=== PATIENT | female | born 1995 | race Caucasian/White ===

== ENCOUNTER → 2018-11-25 21:37 | Observation (INO) ==
[2018-11-25 20:02] LABS: Bilirubin,Urine Negative (Negative); Blood,Urine Negative (Negative); Clarity,Urine Clear (Clear); Color,Urine Yellow (Yellow); Glucose,Urine (UA) Normal (Normal); Ketones,Urine Negative (Negative); Leukocyte Esterase,Urine Negative (Negative); Nitrite,Urine Negative (Negative); Protein,Urine Negative (Neg-Trace); Specific Gravity,Urine 1.018 (1.010-1.025); Urobilinogen,Urine Normal (Normal)
[2018-11-25 20:12] LABS: Amphetamine Screen,Urine Negative ng/mL (Cutoff=1000); Barbiturate Screen,Urine Negative ng/mL (Cutoff=200); Benzodiazepines Screen,Urine Negative ng/mL (Cutoff=200); Cannabinoid Screen,Urine Negative ng/mL (Cutoff = 50); Cocaine Screen,Urine Negative ng/mL (Cutoff= 300); Opiate Screen,Urine Negative ng/mL (Cutoff=300); Phencyclidine Screen,Urine Negative ng/mL (Cutoff=25)
--- NOTE | 2018-11-25 21:37 | OB/GYN Progress Note ---
Date of Encounter: 11/25/18 Time of Encounter: 21:33 - Assessment and Plan (1) 34 weeks gestation of Current Visit: Yes Status: Acute (2) False labor Current Visit: Yes Status: Acute Pt reports cramping after sex. SVE closed and thick. No contractions on toco. Discharge home with precautions. Subjective - Subjective Interval history: 23 year-old presenting at 34 weeks gestation with c/o contractions. She reports that her belly feels lower and she has been lea every 5-10 minutes all evening. She denies leaking or bleeding. Good FM. She also c/o sharp lower back pains for which she sees a chiropractor. She did have sex prior to the onset of contractions today. Antepartum ROS: movement normal, contractions, no loss of fluid, no vaginal bleeding Objective - Exam FHR: category 1 FHR comments: 135 BPM, reactive NST Auscultation: bilateral: normal Abdomen: Present: soft, gravid Uterus: Present: normal Cervical dilation: closed/thick/high
== END | disposition home or self-care (01) ==
LOC: 1NENULAB
PROVIDERS: ADMIT Registered Nurse; ATTEND Registered Nurse

== ENCOUNTER 2019-01-06 12:40 | Inpatient (IN) ==
[2019-01-06 10:49] LABS: Amphetamine Screen,Urine Negative ng/mL (Cutoff=1000); Barbiturate Screen,Urine Negative ng/mL (Cutoff=200); Benzodiazepines Screen,Urine Negative ng/mL (Cutoff=200); Cannabinoid Screen,Urine Negative ng/mL (Cutoff = 50); Cocaine Screen,Urine Negative ng/mL (Cutoff= 300); Opiate Screen,Urine Negative ng/mL (Cutoff=300); Phencyclidine Screen,Urine Negative ng/mL (Cutoff=25)
[~2019-01-06 12:40] MED LIST: *HR* Nalbuphine 10 MG/ML AMPUL IVP PRN; Famotidine 20 MG/2 ML VIAL IVP PRN; Metoclopramide 10 MG/2 ML VIAL IVP PRN; Naloxone 0.4 MG/ML INJ IVP PRN; Ondansetron 4 MG/2 ML VIAL IVP PRN
[2019-01-06] MEDS ORDERED: Ringers Solution, Lactated 1,000 ML IVC SCH (12:45)
--- NOTE | 2019-01-06 12:54 | OB/GYN History & Physical ---
Date of Encounter: 01/06/19 Time of Encounter: 12:45 Assessment and Plan (1) 40 weeks gestation of Current visit: Yes Status: Acute admitted for IOL Dr. Aguila aware and agrees with POC Cytotec 50mcg PO x1 now Nubain or epidural when desires. History of Present Illness Chief complaint: Contractions, low back pain HPI: Ms. Madera is a 23 year old female at 40w0d gestation presented to labor and delivery with complaints of contractions and low back pain that started this morning around 0300. Patient denies VB or LOF. Patient reports movement that is decreased. Patient is currently dilated and requesting IOL. We discussed shore score and patient agrees to proceed with IOL. IOL discussed with Dr. Aguila the water conservationist physician and she also agrees with POC. Patient receives care with [facility]. Shore score today is 11. Blood type: A+ Rubella: Immune Hep B: Nonreactive GBS: Negative Past Med Surg Social Fam HX - Past Medical History Source: patient Medical history: non-contributory Additional medical history: hypothyroid Psychiatric history: no psych history - Past Surgical History Surgical History: other Additional surgical history: shoulder surgery 2016 - Social History Smoking Status: Never smoker Smokeless Tobacco Status: No Alcohol use: none Drug use: none Occupational status: employed Current living situation: Home - Independent Activity Level: Independent ambulation Recent Out of Country Travel Within the Last 8 Weeks: No Exposure or Possible Exposure to Illness During Travel: No - Family History Mother Family Member Ethnicity: Non- Living Status: Still Living Hx Family Endocrine Disorder: Yes (hypothyroid) Obstetrical History - Pregnancies : 1 Para: 0 Term: 0 : 0 Ab's: 0 Livin Medications and Allergies Levothyroxine [Synthroid] 125 mcg PO DAILY 03/18/16 [History] Pnv No.95/Ferrous Fum/Folic AC [ Caplet] 1 tab PO DAILY 10/22/18 [History] Ferrous Sulfate [Iron] 325 mg PO DAILY 01/06/19 [History] Allergy/AdvReac Type Severity Reaction Status Date / Time No Known Allergies Allergy Verified 01/06/19 09:29 Review of System OB - Constitutional Constitutional ROS IM: no chills, no fever(s), no headache(s) - Cardiovascular Cardiovascular: no chest pain, no lightheadedness, no palpitations, no syncope - Respiratory Respiratory: no cough, no dyspnea - Gastrointestinal Gastrointestinal: abdominal pain, cramping, no constipation, no heartburn, no nausea, no vomiting - Genitourinary Genitourinary: no abnormal vaginal bleeding, no dysuria, no flank pain, no urinary frequency, no urinary urgency, no vaginal odor, no vaginal pruritis Exam - Constitutional Constitutional: well developed, well nourished, no acute distress, average body habitus - HEENT HEENT: Normocephaly, Mucus Membranes Moist - Neck Neck exam: full ROM, supple - Lungs Respiratory exam: CTAB - Cardiovascular Cardiovascular exam: RRR, +S1, +S2 - Abdomen Abdomen: Present: bowel sounds normal, gravid, non tender - Extremities Extremities exam: full ROM, normal inspection Deep Tendon Reflex Grade: 2+ Normal - Cervix Dilation: 3 Effacement: 90 Station: -1 - Uterus Uterus exam: Present: normal size, normal contour - Anus/Rectum Anus/Rectum: Present: normal perianal skin - Comments Comments: FHR 135 bpm moderate variability +15x15 accels no decels noted. Contractions 3-4 min apart Cat. 1 tracing Results All other labs normal. - VTE Reasons for not Prescribing Prophylaxis: Treatment not Indicated - Low risk for VTE
[2019-01-06] MEDS ORDERED: miSOPROStol 25 MCG TABLET PO STA (12:59)
[2019-01-06 14:18] LABS: Basophils % 0.4 %; Eosinophils % 0.4 %; Hematocrit 38.1 % (35.3-44.9); Hemoglobin 12.5 g/dL (11.5-15.4); Immature Granulocytes % 0.6 % (0-4); Lymphocytes # 1.4 K/mcL (0.6-4.6); Mean Corpuscular HGB Conc 32.8 g/dL (31.6-35.5); Mean Corpuscular Hemoglobin 29.1 pg (28.0-33.3); Mean Corpuscular Volume 88.8 fL (83.0-100.0); Mean Platelet Volume 12.8 fL (9.4-12.4); Monocytes # 0.7 K/mcL (0.0-1.3); Monocytes % 6.2 %; Neutrophils # 8.5 K/mcL (1.6-8.9); Platelet Count 134 K/mcL (140-400); Red Blood Count 4.29 M/mcL (3.82-4.97); Red Cell Distribution Width 14.8 % (11.5-14.5); Segmented Neutrophils % 79.4 %; White Blood Count 10.7 K/mcL (4.3-11.1)
--- NOTE | 2019-01-06 17:30 | OB Labor Progress Note ---
Date of Encounter: 01/06/19 Time of Encounter: 17:28 Labor Progress Note - Subjective Subjective: Patient reports contractions are getting stronger. Discussed POC with patient. Patient denies any questions or concerns. - Cervix Cervix: 4/90/-1 - Heart Tones Heart Tones: 135 bpm moderate variability +15x15 accels no decels noted. Cat. 1 tracing - Chisholm Chisholm: 1-4 min apart - Interventions Interventions: SVE, AROM moderate amount of clear fluid. Patient tolerated well. - Plan Physician notified: No Plan: Continue labor management Patient may have Nubain or epidural when desires
[2019-01-06] MEDS ORDERED: Ropivacaine/PF 0.2% 20 ML VIAL EP ONE (17:55)
[2019-01-06] MEDS ORDERED: EPHEDrine 50 MG/ML VIAL IVP PRN (17:55)
[2019-01-06] MEDS ORDERED: *HR* FentaNYL (PF) 100 MCG/2 ML VIAL EP ONE (17:55)
[2019-01-06] MEDS ORDERED: Naloxone 0.4 MG/ML INJ IVP PRN (17:55)
[2019-01-06] MEDS ORDERED: Ondansetron 4 MG/2 ML VIAL IVP PRN (17:55)
[2019-01-06] MEDS ORDERED: Epidural Premix (fent/bupiv) 110 ML EP SCH (18:00)
--- NOTE | 2019-01-06 18:01 | Anesthesia Evaluation PreOp ---
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 History: Denies Any Significant HX Other Medical History: Thyroid (hypothyroidism), Other (mild scoliosis) Anesthesia History: No Prior Anesthetic Complications, Past Anesthesia (Shoulder surgery) : Yes Alcohol Use: none Drug use: none Medications and Allergies Levothyroxine [Synthroid] 125 mcg PO DAILY 03/18/16 [History] Pnv No.95/Ferrous Fum/Folic AC [ Caplet] 1 tab PO DAILY 10/22/18 [History] Ferrous Sulfate [Iron] 325 mg PO DAILY 01/06/19 [History] Allergy/AdvReac Type Severity Reaction Status Date / Time No Known Allergies Allergy Verified 01/06/19 09:29 - Meds/Allergy Pre-op Review Medications Reviewed: Yes Allergies Reviewed: Yes Beta Blockers on Current Med List: No Anesthesia Results - Labs 01/06/19 12:41 Anesthesia Exam BP 110/57 P 82 R 18 T 98.4 Height: 5'2" Weight: 87.6kg NPO (# of Hours): 8hr solids Pain Scale: 6 Pain Scale Used: Numeric (1 - 10) - HEENT Pupil (Motor): Pupils equal Mallampati: II Teeth: Normal Oral Opening: Greater than 3 - GLASS RIBBON MACHINE OPERATOR LOC: Oriented GLASS RIBBON MACHINE OPERATOR Motor: Normal RUE, Normal LUE, Normal RLE, Normal LLE, Normal Face GLASS RIBBON MACHINE OPERATOR Sensory: Normal: RUE, LUE, RLE, LLE, Face - Cardiac Rhythm: Regular Murmur: None JVD: No Carotid Bruit: No - Pulmonary Breath Sounds: bilateral Clear Respiratory Effort: Symmetrical Anesthesia Assess/Plan ASA Score: 2 Level of consciousness: Cooperative, Oriented, Tranquil Anesthetic Plan: Epidural Autologous Blood: No Monitoring Plan: Standard Monitors Recovery Plan: Other
[2019-01-06] MEDS ORDERED: *HR* FentaNYL (PF) 100 MCG/2 ML VIAL ONE (18:06)
--- NOTE | 2019-01-06 18:47 | Anesthesia Procedures ---
Date of Encounter: 01/06/19 Time of Encounter: 16:20 Procedures: Anesthesia - Epidural/Spinal Patient ID/Chart reviewed: Yes Patient examined: Yes OB Eval: Gestational age: 40 OB Eval: : 1 OB Eval: Hx Para: 0 OB Eval: Contractions: Non-stressed pattern Consent Obtained: Yes Supplemental Oxygen: None/Room Air Site Prep: Aseptic Technique, Sterile prep and drape, Povidone-Iodine 1% Patient position: upright Local Anesthetic: Lidocaine 1% Amount of Local Anesthetic used: 3 Touhy Needle Gauge: 18 Touhy Needle Depth (cm): 6 Catheter Depth at Skin (cm): 14 Test Dose (1.5% Lido + Epi): Volume given (mls): 3 Test Dose Result: Negative Loading Dose: Fentanyl (mcg): 100 Loading Dose: Other: Ropivicaine 0.2% 5ml, NS 2ml Loading Dose Administered: Thru Catheter Infusion Med: 0.125% Bupivacaine w/ 2 mcg/ml Fentanyl Infusion Rate (mls/hr): [address]: Tegaderm, Tape Interspace Used: L4-L5 Loss of Resistance (ROEL): Yes Blood: No CSF: No Paresthesia: No Procedure: DALIA placed 2nd pass in upright position, 1st pass patient moved. ROEL achieved with normal saline. Catheter threaded with ease to 14cm at skin. Pt stated comfort with bolus. VSS and FHT stable throughout. Vitals + FHT's: 1820 BP 158/80 P 88 R 18 1842 BP 140/73 P 80 R 16
[2019-01-06] MEDS ORDERED: Oxytocin 20 units/ LR 1000 mL 20 UNIT/1,000 ML BAG IVC SCH (23:15)
--- NOTE | 2019-01-07 02:29 | OB/GYN Procedure Note ---
Delivery - Delivery Date: 01/07/19 Provider: Rosalba Fischer Intrapartum events: prolonged 2nd stage>2.5hr Delivery induction: AROM, oxytocin, misoprostol Delivery monitor: external FHT, external uterine Anesthesia: epidural Quantitated Blood Loss: 100 - Infant (s) Infant A Infant Delivery Date: 01/07/19 Infant Delivery Time: 02:01 Presentation: vertex Position: CESAR Route of delivery: Gender: Female Viability: Viable Pounds: 7 Ounces: 8 Weight Gram: 3400 kg at 1 minute: 9 at 5 mins: 10 Shoulder Dystocia: not encountered Specimens collected: cord blood Placenta: spontaneous Cord: 3 umbilical vessels - Repair Episiotomy: none Laceration Description: Labial (right labial ) - Complications Delivery complications: none - Disposition Mom disposition: stable in LDR Tullos disposition: stable in LDR - Comments Comments: Called to LDR patient complete and +3. Patient placed in stirrups and prepped for vaginal delivery. Under maternal effort patient spontaneously delivered a viable female infant over an intact perineum. No nuchal cord, shoulder dystocia or meconium was encountered. Infant was placed on maternal abdomen cord was clamped and cut after pulsations ceased. Cord blood collected. Placenta delivered spontaneously and visually intact. A small right labial laceration was noted and repaired with 3-0 vicryl. Apgars 9/10. EBL 100. Pericare provided. All counts correct. Both mother and stable in recovery for 2 hour recovery.
[2019-01-07] MEDS ORDERED: *HR* HYDROcodone/Acet 5/325 mg TABLET PO PRN (05:34)
[2019-01-07] MEDS ORDERED: Lanolin 7 G OINT...G. TP PRN (05:34)
[2019-01-07] MEDS ORDERED: Ibuprofen 600 MG TABLET PO PRN (05:34)
[2019-01-07] MEDS ORDERED: Acetaminophen 325 MG TABLET PO PRN (05:34)
[2019-01-07] MEDS ORDERED: Oxytocin 20 units/ LR 1000 mL 20 UNIT/1,000 ML BAG IVC SCH (05:34)
[2019-01-07] MEDS ORDERED: Benzocaine/Menthol 56 GM AEROSOL SPRAY TP PRN (05:34)
[2019-01-07] MEDS: Prenatal Vit/FA 1 EACH TABLET PO SCH (08:36)
[2019-01-08 07:47] VITALS: BP 119/77
--- NOTE | 2019-01-08 08:45 | Discharge Summary ---
Date of Encounter: 01/08/19 Time of Encounter: 08:41 - Discharge Diagnosis (1) Vaginal delivery Priority: Primary Status: Acute Comments: S/P Vaginal Delivery Day 1 Pain is well controlled Lochia is light and without clots VSS Tolerating regular diet and passing flatus Voiding without difficulty Breast feeding well Discharge home today POC per consult with Dr Roach - Discharge Medications Prescriptions: New Breast Pump [BREAST PUMP] 1 each .ROUTE AD #1 each Docusate [Colace] 100 mg PO BID PRN #30 capsule PRN Reason: Constipation Benzocaine/Menthol Rapidan [Dermoplast Rapidan] 1 appl TP QID PRN aerosol PRN Reason: See Comments Lanolin [Lansinoh] 1 appl TP TID PRN oint...g. PRN Reason: Sore Nipples Ibuprofen [Motrin] 600 mg PO Q6HR PRN #30 tablet PRN Reason: Cramping Acetaminophen [Tylenol] 650 mg PO Q6HR PRN tablet PRN Reason: Mild Pain Continued Levothyroxine [Synthroid] 125 mcg PO DAILY Pnv No.95/Ferrous Fum/Folic AC [ Caplet] 1 tab PO DAILY Discontinued Ferrous Sulfate [Iron] 325 mg PO DAILY Home Medications: Levothyroxine [Synthroid] 125 mcg PO DAILY 03/18/16 [History] Pnv No.95/Ferrous Fum/Folic AC [ Caplet] 1 tab PO DAILY 10/22/18 [History] Acetaminophen [Tylenol] 650 mg PO Q6HR PRN tablet 01/08/19 [Rx] Benzocaine/Menthol Rapidan [Dermoplast Rapidan] 1 appl TP QID PRN aerosol 01/08/19 [Rx] Breast Pump [BREAST PUMP] 1 each .ROUTE AD #1 each 01/08/19 [Rx] Docusate [Colace] 100 mg PO BID PRN #30 capsule 01/08/19 [Rx] Ibuprofen [Motrin] 600 mg PO Q6HR PRN #30 tablet 01/08/19 [Rx] Lanolin [Lansinoh] 1 appl TP TID PRN oint...g. 01/08/19 [Rx] Allergies/Adverse Reactions: Allergy/AdvReac Type Severity Reaction Status Date / Time No Known Allergies Allergy Verified 01/06/19 09:29 Data Procedures and tests throughout hospitalization: Laboratory Tests 01/06/19 01/06/19 09:41 12:41 WBC 10.7 RBC 4.29 Hgb 12.5 Hct 38.1 MCV 88.8 MCH 29.1 MCHC 32.8 RDW 14.8 H Plt Count 134 L MPV 12.8 H Immature Gran % 0.6 Seg Neutrophils % 79.4 Lymphocytes % 13.0 Monocytes % 6.2 Eosinophils % 0.4 Basophils % 0.4 Neutrophils # 8.5 Lymphocytes # 1.4 Monocytes # 0.7 Eosinophils # 0.0 Basophils # 0.0 Urine Opiates Screen Negative Ur Buprenorphine Scrn Negative Ur Barbiturates Screen Negative Ur Phencyclidine Scrn Negative Ur Amphetamines Screen Negative U Benzodiazepines Scrn Negative Urine Cocaine Screen Negative U Marijuana (THC) Screen Negative Ur Drug Screen Interp See Below Date of admission: 01/06/19 12:40 Consults: 01/07/19 05:34 Consult to Driver Trainee [CONS] Routine Comment: Vaginal delivery, consult needed Discharging clinician: Neelam Quinones Anticipated date of discharge: 01/08/19 - Patient Status Disposition: Home, Self-Care Condition: Good Functional capacity at discharge: independent ambulation Overall status at discharge: patient is progressing back to baseline - Discharge Instructions Follow Up With: Rosalba Fischer CNM [Non-Partnered Physician] - - Diet and Activity Activity: increase activity as tolerated Diet: regular diet Hospital Course Reason for admission: induction of labor, IUP at term Delivery: Episiotomy: none Laceration: other Other procedures: none complications: none Discharge diagnosis: IUP at term delivered [place] baby: female Time Attestation: Total time spent providing and/or coordinating discharge services: Time Spent: Less than 30 minutes Exam - Constitutional Vitals: Temp Pulse Resp BP Pulse Ox 97.8 F 70 16 119/77 98 01/08/19 07:46 01/08/19 07:46 01/08/19 07:46 01/08/19 07:46 01/07/19 20:00 General appearance IM: cooperative, A&O X 3, pleasant - Respiratory Respiratory exam: Present: CTAB - Cardiovascular Cardiovascular exam IM: Present: RRR, +S1, +S2 - GI/Abdominal GI/Abdominal exam IM: normal bowel sounds, soft - Rectal Rectal exam: deferred - Uterine Tone: Firm Uterus Position: 1 Finger Below Umbilicus, Midline - Extremities Exam Extremities exam IM: Present: normal capillary refill, normal inspection, radial pulses palpable and symmetrical - Neurological Exam Neurological exam: alert, oriented X3
[2019-01-08] MEDS: Prenatal Vit/FA 1 EACH TABLET PO SCH ×2 (09:18→09:55)
== END 2019-01-08 12:06 | disposition home or self-care (01) | DRG 807 ==
LOC: 1NENULAB → 1NENUOBS 01-07 05:26
PROVIDERS: ADMIT Advanced Practice Midwife; ATTEND Advanced Practice Midwife

== ENCOUNTER 2022-03-08 05:56 | Inpatient (IN) ==
[2022-03-08] MEDS ORDERED: *HR* Nalbuphine 10 MG/ML AMPUL IV PRN (06:41)
[2022-03-08] MEDS ORDERED: Naloxone 0.4 MG/ML INJ IVP PRN (06:41)
[2022-03-08] MEDS ORDERED: Metoclopramide 10 MG/2 ML VIAL IVP PRN (06:41)
[2022-03-08] MEDS ORDERED: Azithromycin 500 MG in 0.9 % Sodium Chloride 250 ML IVPB PRN (06:41)
[2022-03-08] MEDS ORDERED: Famotidine 20 MG/2 ML VIAL IVP PRN (06:41)
[2022-03-08] MEDS ORDERED: Ondansetron 4 MG/2 ML VIAL IVP PRN (06:41)
[2022-03-08] MEDS ORDERED: EPHEDrine 50 MG/ML VIAL IVP PRN (07:07)
[2022-03-08 08:13] LABS: Basophils % 0.4 %; Eosinophils # 0.1 K/mcL (0.0-0.6); Eosinophils % 0.7 %; Hematocrit 33.8 % (35.3-44.9); Hemoglobin 11.1 g/dL (11.5-15.4); Immature Granulocytes % 0.6 % (0-4); Lymphocytes # 1.7 K/mcL (0.6-4.6); Lymphocytes % 19.9 %; Mean Corpuscular HGB Conc 32.8 g/dL (31.6-35.5); Mean Corpuscular Hemoglobin 28.8 pg (28.0-33.3); Mean Corpuscular Volume 87.8 fL (83.0-100.0); Mean Platelet Volume 12.1 fL (9.4-12.4); Monocytes # 0.6 K/mcL (0.0-1.3); Monocytes % 7.2 %; Neutrophils # 5.9 K/mcL (1.6-8.9); Platelet Count 146 K/mcL (140-400); Red Blood Count 3.85 M/mcL (3.82-4.97); Red Cell Distribution Width 15.8 % (11.5-14.5); Segmented Neutrophils % 71.2 %; White Blood Count 8.3 K/mcL (4.3-11.1)
[2022-03-08] MEDS ORDERED: miSOPROStoL 25 MCG TABLET VG SCH ×2 (08:46→12:00)
[2022-03-08 10:33] LABS: Amphetamine Screen,Urine Negative ng/mL (Cutoff=1000); Barbiturate Screen,Urine Negative ng/mL (Cutoff=200); Benzodiazepines Screen,Urine Negative ng/mL (Cutoff=200); Cannabinoid Screen,Urine Negative ng/mL (Cutoff = 50); Cocaine Screen,Urine Negative ng/mL (Cutoff= 300); Opiate Screen,Urine Negative ng/mL (Cutoff=300); Phencyclidine Screen,Urine Negative ng/mL (Cutoff=25)
[2022-03-08] MEDS ORDERED: Oxytocin 30 UNIT/503 ML BAG IVC SCH (13:45)
[2022-03-08] MEDS: Ringers Solution, Lactated 1,000 ML IVC SCH ×2 (13:49→17:45)
[2022-03-08] MEDS: Epidural Premix (fent/bupiv) 110 ML EP SCH ×2 (14:32→21:24)
[2022-03-08] MEDS ORDERED: Terbutaline 1 MG/ML VIAL SQ ONE (16:27)
[2022-03-09] MEDS ORDERED: Rho Immune Globulin 1,500 UNIT SYRINGE IM PRN ×2 (05:24→07:30)
[2022-03-09] MEDS ORDERED: Acetaminophen 325 MG TABLET PO SCH (05:24)
[2022-03-09] MEDS ORDERED: Benzocaine/Menthol 56 GM AEROSOL SPRAY TP PRN ×2 (05:24→07:30)
[2022-03-09] MEDS ORDERED: Oxytocin 30 UNIT/503 ML BAG IVC SCH ×2 (05:24→07:30)
[2022-03-09] MEDS ORDERED: Measles/Mumps/Rubella Vacc 0.5 ML VIAL SQ PRN ×2 (05:24→07:30)
[2022-03-09] MEDS ORDERED: Lanolin 7 G OINT...G. TP PRN ×2 (05:24→07:30)
[2022-03-09] MEDS ORDERED: Ondansetron ODT 4 MG TAB.RAPDIS SL PRN ×2 (06:00→07:30)
[2022-03-09] MEDS ORDERED: Ibuprofen 600 MG TABLET PO SCH (06:01)
[2022-03-09] MEDS: Prenatal Vit/FA 1 EACH TABLET PO SCH (08:12)
[2022-03-09] MEDS: Acetaminophen 325 MG TABLET PO SCH ×3 (08:12→22:57)
[2022-03-09] MEDS ORDERED: Prenatal Vit/FA 1 EACH TABLET PO SCH (09:00)
[2022-03-09] MEDS: Ibuprofen 600 MG TABLET PO SCH ×3 (09:52→22:57)
[2022-03-10 04:21] LABS: Basophils % 0.6 %; Eosinophils # 0.1 K/mcL (0.0-0.6); Eosinophils % 1.3 %; Hematocrit 32.9 % (35.3-44.9); Hemoglobin 10.5 g/dL (11.5-15.4); Immature Granulocytes % 0.6 % (0-4); Immature Platelets 9.5 % (1.1-6.1); Lymphocytes # 1.8 K/mcL (0.6-4.6); Lymphocytes % 26.5 %; Mean Corpuscular HGB Conc 31.9 g/dL (31.6-35.5); Mean Corpuscular Hemoglobin 28.6 pg (28.0-33.3); Mean Corpuscular Volume 89.6 fL (83.0-100.0); Mean Platelet Volume 11.5 fL (9.4-12.4); Monocytes # 0.6 K/mcL (0.0-1.3); Monocytes % 8.1 %; Neutrophils # 4.2 K/mcL (1.6-8.9); Platelet Count 128 K/mcL (140-400); Red Blood Count 3.67 M/mcL (3.82-4.97); Red Cell Distribution Width 16.1 % (11.5-14.5); Segmented Neutrophils % 62.9 %; White Blood Count 6.8 K/mcL (4.3-11.1)
[2022-03-10] MEDS: Ibuprofen 600 MG TABLET PO SCH (06:47)
[2022-03-10] MEDS: Acetaminophen 325 MG TABLET PO SCH (06:47)
[2022-03-10 06:52] VITALS: O2SAT 99
[2022-03-10] MEDS: Prenatal Vit/FA 1 EACH TABLET PO SCH (08:33)
[2022-03-10 12:25] VITALS: BP 131/85; PULSE 74; TEMP 98
[2022-03-10 14:22] LABS: Alanine Aminotransferase 13 Units/L (7-52); Aspartate Amino Transferase 18 Units/L (13-39); BUN/Creatinine Ratio 18 (6-26); Blood Urea Nitrogen 13 mg/dL (6-20); Lactate Dehydrogenase 157 Units/L (140-271); Uric Acid 6.6 mg/dL (2.3-7.6)
== END 2022-03-10 15:21 | disposition home or self-care (01) | DRG 807 ==
LOC: 1NENULAB 05:56 → 1NENUOBS 03-09 05:13
PROVIDERS: ADMIT Advanced Practice Midwife; ATTEND Advanced Practice Midwife